=== PATIENT | male | born 1990 | race Caucasian/White ===

== ENCOUNTER 2022-01-01 11:01 | Emergency (ER) | payer OTHER ==
[~2022-01-01] VITALS: Ht 182.9 cm; Wt 79.4 kg
--- NOTE | 2022-01-01 11:16 | NUR ---
BIBS for c/o "Came Back from [place] started having AP,Nausea,Diarrhe and fever- mostly at night". C/O abdminal pain 5/10. In room air and denies SOB. Respiration regular and unlabored. Will continue to monitor the patient.
[2022-01-01] MEDS ORDERED: CIPROFLOXACIN HCL 500 MG TABLET PO ONE (11:30)
[2022-01-01] MEDS ORDERED: IV NS 0.9% 1,000 ML BAG IV ONE (11:30)
[2022-01-01] MEDS ORDERED: KETOROLAC TROMETHAMINE INJ 30 MG/ML VIAL IV ONE (11:30)
[2022-01-01] MEDS ORDERED: KETOROLAC TROMETHAMINE 15 MG/ML VIAL ONE (11:31)
[2022-01-01] MEDS ORDERED: CIPROFLOXACIN HCL 500 MG TABLET ONE (11:31)
[2022-01-01] MEDS ORDERED: CIPR-262 PO (12:15)
--- NOTE | 2022-01-01 13:05 | NUR ---
IV CANULA REMOVED. DRESSING APPLIED.
--- NOTE | 2022-01-01 13:06 | NUR ---
PATIENT IS UNABLE TO PROVIDE STOOL FOR CULTURE, MADE AWARE.
--- NOTE | 2022-01-01 13:07 | NUR ---
Patient discharged to home in stable condition. Written and verbal after care instructions given. Patient verbalizes understanding of instruction.
[2022-01-01 13:09] VITALS: BP 112/70
== END 2022-01-01 13:11 | disposition home or self-care (01) ==
LOC: ER 11:06
DX: A09 Infectious gastroenteritis and colitis, unspecified (principal)
CPT/HCPCS: 96361; 96374; 99283; J1885; J7040